=== PATIENT | female | born 1980 | race Two or more races ===

== ENCOUNTER 2019-02-04 15:04 | Emergency (ER) | payer OTHER ==
[~2019-02-04] VITALS: Ht 152.4 cm; Wt 104.3 kg
[2019-02-04 15:13] VITALS: BP 140/89
--- NOTE | 2019-02-04 15:42 | NUR ---
PT ARRIVED AT ED WITH C/O N, RIGHT FLANK PAIN RADIATING TO LOWER BACK. PT STATES, "IT FEELS PRESSURE, BURNING, AND ACHING AND IT COMES AND GOES" X 1 DAY. [facility]: APPENDECTOMY
--- NOTE | 2019-02-04 16:51 | NUR ---
RADIOLOGY VIA WHEELCHAIR.
--- NOTE | 2019-02-04 17:42 | NUR ---
PT LAYING COMFOTABLY IN BED, USING CELL PHONE.
[2019-02-04 18:25] VITALS: BP 128/66
--- NOTE | 2019-02-04 18:26 | NUR ---
Patient discharged with v/s stable. Written and verbal after care instructions given and explained. Patient alert, oriented and verbalized understanding of instructions. Ambulatory with steady gait. All questions addressed prior to discharge. ID band removed. Patient advised to follow up with PMD. Rx of LACTULOSE AND MINERAL OIL given. Patient educated on indication of medication including possible reaction and side effects. Opportunity to ask questions provided and answered.
== END 2019-02-04 18:26 | disposition home or self-care (01) ==
LOC: MED 15:04
DX: R10.9 Unspecified abdominal pain (principal); R11.0 Nausea
CPT/HCPCS: 74022; 81002; 81025; 99283